=== PATIENT | female | born 2000 | race Caucasian/White ===

== ENCOUNTER 2024-09-12 06:55 | Emergency (ER) | payer BC, SELFPAY ==
[2024-09-12 06:57] VITALS: BP 114/87
[2024-09-12 07:08] VITALS: BMI 27.1
--- NOTE | 2024-09-12 07:11 | ED.GENMED ---
History of Present Illness
General
Chief Complaint: Abdominal Pain
Time Seen by Provider: 09/12/24 07:01
History of Present Illness
History of Present Illness:
The patient is a 24-year-old female who presents with abdominal pain, vomiting, and diarrhea. The pain is described as being located under the ribs and radiating to the back, starting around 5 a.m. today. The patient reports having had a significant
dinner the night before but initially attributed her symptoms to overeating. Over the past night, she also experienced discomfort that differed from previous episodes. The pain did not subside and continued to worsen, especially radiating to her
back, which she had not experienced before. She also noted that taking deep breaths caused pain. She denied any urinary symptoms or new vaginal discharge. Her past medical history includes an appendectomy at the age of [age].
The patient reports intermittent use of semaglutide for weight loss, with her last dose missed, which she typically takes on .
Phy Exam
Physical Exam
Physical Exam:
GENERAL APPEARANCE: NAD, well developed/ well nourished
EYES lids/conjunctiva normal
EARS/NOSE/THROAT Mucous membranes moist, uvula midline without oral pharyngeal erythema, exudate or swelling
HEAD/NECK normocephalic atraumatic, neck is supple.
RESPIRATORY respiratory effort normal, speaks in full sentences, no accessory muscle use. Lungs clear to auscultation without rhonchi, wheezes, rales
CARDIAC Regular rate and rhythm, no edema.
ABDOMINAL Soft, Nondistended. tenderness in the upper right quadrant with some pressure in the epigastrium on palpation
MUSCLES/EXTREMITIES No abnormal range of motion, no swelling.
SKIN Warm, pink and dry. No rashes
NEUROLOGICAL Speech is clear and appropriate. Normal level of consciousness. 5/5 strength in all extremities.
PSYCH Normal mood and affect. Judgement/competence is appropriate
Course
Orders/Labs/Results
Orders:
Orders
09/12/24 07:11
0.9% Sodium Chloride 1000 ml [Nss] 1,000 ml IV BOLUS
HYDROmorphone [Dilaudid] 0.5 mg IV NOW STA
Ondansetron Injectable [Zofran] 4 mg IV NOW STA
09/12/24 07:12
Test Result ONCE
US Abdomen Complete/Upper Urgent
Comment:
Reason For Exam: RUQ pain
09/12/24 07:23
Complete Blood Count/With Diff Urgent
Comprehensive Metabolic Panel Urgent
HCG, Serum Qualitative Screen Urgent
Lipase Urgent
Troponin I Urgent
09/12/24 08:03
HYDROmorphone [Dilaudid] 1 mg IV NOW STA
09/12/24 08:04
HYDROmorphone [Dilaudid] 1 mg .ROUTE .STK-MED ONE
Abnormal Lab Results
09/12/24
07:23
MCV 80.4 L fL
(81.0-99.0)
MCH 26.9 L pg
(27.0-31.0)
MPV 10.6 H fL
(7.4-10.4)
Chloride 108 H mmol/L
(98-107)
09/12/24 07:23
09/12/24 07:23
Vital Signs
Initial and Last Documented VS:
Initial Vital Signs
Temp Pulse Resp BP Pulse Ox
97.5 F 59 18 114/87 100
09/12/24 06:57 09/12/24 06:57 09/12/24 06:57 09/12/24 06:57 09/12/24 06:57
Last Documented Vital Signs
Temp Pulse Resp BP Pulse Ox
97.5 F 48 18 101/51 97
09/12/24 06:57 09/12/24 12:08 09/12/24 06:57 09/12/24 12:08 09/12/24 12:08
MDM/Problems Addressed
Differential Diagnosis Includes:
The Differential Diagnosis includes, in no particular order and is not limited to:
1. Cholelithiasis (Gallstones)
2. Cholecystitis
3. Biliary colic
4. Pancreatitis
5. Peptic ulcer disease
6. Gastroesophageal reflux disease
7. Hepatitis
8. Gastroenteritis
*Critical Care Note
Total Time (30-74mins, 75-104mins- exclusive of procedures): Not Applicable
ED Attending Note
ED Attending Note
ED Attending Note:
- Initiate an intravenous line for fluid administration.
- Administer pain and nausea medication.
- Conduct blood work to investigate potential pancreatitis, and liver function.
- Perform abdominal ultrasound to assess the gallbladder for stones or other pathologies.
- Monitor patient and update with results as they become available.
Reassessment: Pain is resolved. Patient has returned to baseline mental/ambulatory status after pain medications. Instructed close follow up with general surgery to discuss outpatient cholecystectomy. Return precautions given
-
Portions of this chart may have been created with voice recognition software.� Occasional wrong word or��sound alike� substitutions may have occurred due to the inherent limitations of voice recognition software.
Discharge Plan
Departure
Patient Disposition: Home (Routine Discharge)
Date of Disposition: 09/12/24
Time of Disposition: 11:20
Patient with high blood pressure during this ER visit?: No
Discharge Problem:
Biliary colic
Instructions: Gallstones - Discharge instructions
Prescriptions:
New
naproxen 500 mg tablet
500 mg PO BID PRN (Reason: Pain) Qty: 14 0RF
Referrals:
Frannie Garcia DO [Family Provider, Family Practice]
Christopher Serrano MD [Active, Surgical]
Referral Note: biliary colic
Activity Restrictions/Additional Instructions:
Overview
When you eat, the gallbladder releases bile, which helps you digest the fat in food. If you have an inflamed gallbladder, this may cause pain. A low-fat diet may give your gallbladder a rest so you can start to heal. Your doctor and dietitian can
help you make an eating plan that does not irritate your digestive system. Always talk with your doctor or dietitian before you make changes in your diet.
Follow-up care is a arroyo part of your treatment and safety.�Be sure to make and go to all appointments, and call your doctor or nurse advice line (811�in most provinces and territories) if you are having problems. It's also a good idea to know your
test results and keep a list of the medicines you take.
How can you care for yourself at home?
Eat 4 to 6 small meals and snacks each day instead of three large meals.Choose lean meats.
Cut off all fat you can see.
Eat poultry, like chicken, duck, and turkey without the skin.
Many types of fish, such as salmon, xiao trout, tuna, and deras, provide healthy omega-3 fat. But, avoid fish canned in oil, such as sardines in olive oil.
Bake, broil, or grill meats, poultry, or fish instead of frying them in butter or fat.Choose skim or low-fat milk, yogurt, cheese, other milk products, or fortified soy beverage.
Read the labels on cheeses, and choose a reduced fat option.
Try fat-free sour cream, cream cheese, or yogurt.
Avoid cream soups and cream sauces on pasta.
Eat low-fat ice cream, frozen yogurt, or sorbet. Avoid regular ice cream.Eat a variety of vegetables and fruits. These are high in nutrition and low in fat.Limit the amount of avocado and coconut due to their high fat content.Eat whole grain
cereals, breads, crackers, brown rice, or pasta. Avoid breads that have been fried or deep-fried, like bannock or doughnuts, or breads that have a high fat content, like croissants.Flavor your foods with herbs and spices (such as basil, tarragon, or
mint), fat-free sauces, or lemon juice.Try applesauce, prune puree, or mashed bananas to replace some or all of the fat when you bake.Limit fats and oils, such as butter, margarine, mayonnaise, and salad dressing, to no more than 1 tablespoon (15
mL) a meal.Avoid high-fat foods, such as:
Chocolate, whole milk, ice cream, processed cheese, and egg yolks.
Fried, deep fried, or buttered foods.
Sausage, salami, and shea.
Cinnamon rolls, cakes, pies, cookies, and other pastries.
Prepared snack foods, such as potato chips, nut and granola bars, and mixed nuts.
Coconut and avocado.
Fast food and convenience food meals that have lots of fat.
Interventions
Interventions:
*Risk Screen - Suicide Last Done: 09/12/24 06:57
*General Assessment Last Done: 09/12/24 10:00
*Neglect/Abuse Screening Last Done: 09/12/24 06:57
*ED- Fall Risk Assessment Last Done: 09/12/24 07:31
*ED COVID-19 Vaccine History Last Done: 09/12/24 07:31
*Nursing Disposition Last Done: 09/12/24 12:08
KS-Purmei-Xxlqexosjh Assessment Last Done: 09/12/24 07:31
Discharge Date and Time
Discharge Date/Time: 09/12/24 12:08
Print Language: ITALIAN
[2024-09-12] MEDS: DILAUDID 0.5 MG IV (07:19)
[2024-09-12] MEDS: ZOFRAN 4 MG IV (07:20)
[2024-09-12] MEDS: NSS 1000 IV (07:21)
[2024-09-12 07:38] LABS: % Basophils 0.4 % (0-2); % Eosinophils 0.9 % (0-6); % Immature Granulocytes 0.2 % (0-0.5); % Lymphocytes 25.4 % (20.5-51.1); % Monocytes 6.5 % (1.7-9.3); % Neutrophils 66.6 % (42.2-75.2); Absolute Eosinophils 0.1 10^3/uL (0-0.7); Absolute Lymphocytes 2.4 10^3/uL (1.2-3.4); Absolute Monocytes 0.6 10^3/uL (0.1-0.6); Absolute Neutrophils 6.2 10^3/uL (1.4-6.5); Hematocrit 42.2 % (37.0-47.0); Hemoglobin 14.1 g/dL (12.0-16.0); Mean Corp Hgb Conc. 33.4 g/dL (33.0-37.0); Mean Corpuscular Hgb 26.9 pg (27.0-31.0); Mean Corpuscular Volume 80.4 fL (81.0-99.0); Mean Platelet Volume 10.6 fL (7.4-10.4); Nucleated Red Blood Cells % 0 %; Platelet Count 264 10^3/uL (130-400); Red Blood Cell Count 5.25 10^6/uL (4.20-5.40); Red Cell Dist. Width 13.2 % (11.5-14.5); White Blood Cell Count 9.3 10^3/uL (4.8-10.8)
[2024-09-12 07:48] LABS: HCG, Serum Qualitative Screen Negative
[2024-09-12 08:01] LABS: ALT (SGPT) 16 U/L (0-35); AST (SGOT) 18 U/L (14-36); Albumin 4.8 g/dl (3.5-5.0); Alkaline Phosphatase 53 U/L (38-126); Blood Urea Nitrogen 8 mg/dl (7-17); Calcium 9.5 mg/dl (8.4-10.2); Carbon Dioxide 23 mmol/L (22-30); Chloride 108 mmol/L (98-107); Estimated Creatinine Clearance > 125 ml/min; Glucose 93 mg/dl (70-99); Lipase 146 U/L (23-300); Sodium 142 mmol/L (135-145); Total Bilirubin 0.7 mg/dl (0.2-1.3); Total Protein 7.7 g/dl (6.3-8.2); eGFR > 60.00
[2024-09-12 08:03] LABS: Troponin I < 0.012 ng/ml
[2024-09-12] MEDS: DILAUDID 1 MG IV (08:05)
[2024-09-12 10:26] VITALS: BP 106/53
[2024-09-12 10:39] VITALS: BP 106/53
[2024-09-12 12:08] VITALS: BP 101/51
== END 2024-09-12 12:08 | disposition home or self-care (01) ==
LOC: EMR 06:55
PROVIDERS: EMERGENCY PHYSICIAN Emergency Medicine; FAMILY PHYSICIAN Family Medicine
DX: K80.70 Calculus of gallbladder and bile duct without cholecystitis without obstruction (principal); R11.10 Vomiting, unspecified; R19.7 Diarrhea, unspecified
CPT/HCPCS: 96374; 96375; 96376; 96361; 99284; 76700; 80053; 83690; 84484; 84703; 85025

== ENCOUNTER 2024-10-02 22:27 | Day surgery (SDC) | payer BC, SELFPAY ==
[2024-10-02 16:07] VITALS: BP 125/78
[2024-10-02 16:25] LABS: Hematocrit 39.5 % (37.0-47.0); Hemoglobin 12.9 g/dL (12.0-16.0); Mean Corp Hgb Conc. 32.7 g/dL (33.0-37.0); Mean Corpuscular Volume 83.2 fL (81.0-99.0); Nucleated Red Blood Cells % 0 %; Platelet Count 279 10^3/uL (130-400); Red Cell Dist. Width 13.6 % (11.5-14.5)
[2024-10-02 16:34] LABS: HCG, Serum Qualitative Screen Negative
[2024-10-02 16:36] LABS: ALT (SGPT) 33 U/L (0-35); AST (SGOT) 21 U/L (14-36); Albumin 4.7 g/dl (3.5-5.0); Alkaline Phosphatase 52 U/L (38-126); Blood Urea Nitrogen 8 mg/dl (7-17); Calcium 9.7 mg/dl (8.4-10.2); Carbon Dioxide 25 mmol/L (22-30); Chloride 109 mmol/L (98-107); Glucose 94 mg/dl (70-99); Lipase 81 U/L (23-300); Potassium 4.1 mmol/L (3.5-5.1); Sodium 139 mmol/L (135-145); Total Protein 7.4 g/dl (6.3-8.2); eGFR > 60.00
[2024-10-02 18:05] VITALS: BP 118/81
--- NOTE | 2024-10-02 20:03 | ED.GENMED ---
History of Present Illness
General
Chief Complaint: Abdominal Pain
Source: patient
Exam Limitations: none
Time Seen by Provider: 10/02/24 19:51
Nursing documentation reviewed up to this point in time: agreed with
History of Present Illness
History of Present Illness:
24-year-old female presents emergency room complaining of right-sided abdominal pain, nausea vomiting diarrhea. She was seen in the emergency department 3 weeks ago and diagnosed with gallstones. She followed up with Dr. Zach suh, who
recommended cholecystectomy. She continued to have pain, so she came to the emergency department.
Past History
Past History
ED Past Medical History: Other (Gallstone)
ED Past Surgical History: Appendectomy
Social History
Tobacco: Non-smoker
Alcohol: None
Drug: None
Living: with family
Review of Systems
Review of Systems
Allergies reviewed?: Yes
All Other Systems: Not applicable
Constitutional: Reports no symptoms
EENT: Reports no symptoms
Respiratory: Reports no symptoms
Cardiac: Reports no symptoms
ABD/GI: Reports abdominal pain, nausea, vomiting and diarrhea
: Reports no symptoms
Musculoskeletal: Reports no symptoms
Skin: Reports no symptoms
Neurological: Reports no symptoms
Endocrine: Reports no symptoms
Hematologic/Lymphatic: Reports no symptoms
Psychiatric: Reports no symptoms
Phy Exam
Physical Exam
Physical Exam:
Physical Exam
General: no apparent distress, not acutely ill
Neck: supple. no meningeal signs. normal posterior pharynx
Heart: s1/s2 regular rate and rhythm, no murmur. equal radial
pulses.
HEENT: Pupils equal round reactive to light, EOMI
Lungs: no acute respiratory distress. clear bilaterally
Abdomen: normal bowel sounds. Right upper quadrant tenderness. no CVAT
Neuro: alert and oriented. no focal neurological deficits cranial nerves II through XII intact
Skin: no rash
Psychiatric: well kept. interactive and cooperative
Extremities: no edema. no calf tenderness. negative homans. good distal pulses
Course
Orders/Labs/Results
Orders:
Orders
10/02/24 16:09
IV Insert/Care/Rem.- Treatment PRN
10/02/24 16:10
Test Result ONCE
10/02/24 16:14
Complete Blood Count/With Diff Urgent
Comprehensive Metabolic Panel Urgent
HCG, Serum Qualitative Screen Urgent
Comment: Notify provider if positive test present
Lipase Urgent
10/02/24 20:02
US Abdomen Limited Urgent
Comment:
Reason For Exam: RUQ pain, gallstone history eval GB, biliary tree
10/02/24 20:06
Ketorolac [Toradol] 15 mg IV NOW STA
10/02/24 21:22
Piperacillin/Tazo 4.5 Gram [Zosyn] 4.5 gram in 100 ml IV NOW
10/02/24 21:23
Morphine Sulfate 4 mg IV NOW STA
Ondansetron Injectable [Zofran] 4 mg IV NOW STA
10/02/24 22:00
Admit/Transfer Patient As Directed
Co-Sign Provider:
Level of Care: Inpatient admission
Assign to:: Medical/Surgical
Physician / Group: Christopher serrano
Diagnosis: Acute cholecystitis
Reason for Hospitalization: Possible OR
IV antibiotics
Expected length of stay greater than two midnights?: Yes
ELOS- Estimated Length of Stay in days: 1
I certify the patient meets the requirements for IP care: Yes
PRN Pain Medication Management As Directed
May give lesser potent ordered pain med per pt: Yes
preference::
Protocol:: Medication orders for pain may be administered in a
manner that supports deferring to patient preference
when the pt is:
- Requesting an ordered lesser potent pain medication.
Least to most potent pain medications are defined
as: acetaminophen < NSAID < tramadol < opioids
(morphine, oxycodone, hydromorphone).
- Requesting a lesser dose of the same medication IF
ORDERED.
- Requesting a less intrusive route of administration
if both routes are prescribed by the provider (PO <
IV).
10/02/24 22:02
Code Status As Directed
Resuscitation Status: Full Code
10/02/24 23:55
0.9% Sodium Chloride 1000 ml [Nss] 1,000 ml IV 100 mls/hr
Morphine Sulfate 2 mg IV Q4HPRN PRN
Morphine Sulfate 4 mg IV Q4HPRN PRN
Ondansetron Injectable [Zofran] 4 mg IV Q6HPRN PRN
Piperacillin/Tazo 4.5 Gram [Zosyn] 4.5 gram in 100 ml IV Q8H
10/02/24 23:55
Activity As Directed
Activity Level: Out of Bed-Early Mobility
Anti-embolism (AUBREY) Hose As Directed
Type: Thigh high
Intake/ Output As Directed
Frequency: Per unit guidelines
Pneumatic Compression Sleeves As Directed
Type: Thigh high
Vital Signs As Directed
Frequency: Per unit guidelines
DX Deep Vein Thrombosis Video Routine
10/03/24 Breakfast
NPO
Allow oral meds: No
Allow clear liquids: No
Basic Metabolic Panel IN AM
Complete Blood Count/No Diff IN AM
Abnormal Lab Results
10/02/24
16:14
MCHC 32.7 L g/dL
(33.0-37.0)
MPV 10.7 H fL
(7.4-10.4)
Chloride 109 H mmol/L
(98-107)
Total Bilirubin 1.4 H mg/dl
(0.2-1.3)
10/02/24 16:14
10/02/24 16:14
Vital Signs
Initial and Last Documented VS:
Initial Vital Signs
Temp Pulse Resp BP Pulse Ox
98.2 F 64 18 125/78 98
10/02/24 16:07 10/02/24 16:07 10/02/24 16:07 10/02/24 16:07 10/02/24 16:07
Last Documented Vital Signs
Temp Pulse Resp BP Pulse Ox
98 F 51 17 119/57 99
10/02/24 23:50 10/02/24 23:50 10/02/24 23:50 10/02/24 23:50 10/02/24 23:50
MDM/Problems Addressed
Differential Diagnosis Includes:
Cholecystitis, pancreatitis
MDM/Problems Addressed:
24-year-old female with acute cholecystitis. Discussed with Dr. Serrano, who will take the OR in a.. Zosyn given.
Chronic conditions affecting care: Previous abdomnial surgery (Prior appendectomy)
*Radiology
Radiology exam reviewed: radiology read reviewed (Ultrasound gallbladder shows cholelithiasis)
*Pulse Oximetry
SaO2: 99
Oxygen Mode of Delivery: Room air
Patient hypoxic: no
*Engraver Lettering Interpretation
Rate: Engraver Lettering- N/A
*Critical Care Note
Total Time (30-74mins, 75-104mins- exclusive of procedures): Not Applicable
Data Reviewed
Review of Other/Old Records Reveals: Labs (Prior bilirubin 0.7)
Source: records
Further Testing Considered But Not Given:
CT abdomen pelvis not indicated
Patient Management
Social determinants of health affecting care: Living situation
Discussion with other providers: Inspector [employer]ric (General surgery)
Escalation/DeEscalation of care consider admission/obs:
Admit indicated
ED Attending Note
-
Portions of this chart may have been created with voice recognition software.� Occasional wrong word or��sound alike� substitutions may have occurred due to the inherent limitations of voice recognition software.
Discharge Plan
Departure
Patient Disposition: Admit
Date of Disposition: 10/02/24
Time of Disposition: 21:19
Admit to: Med/Surg
Presentation/result/management discussed w/ accepting MD/DO: Dr. Serrano, general surge
Patient with high blood pressure during this ER visit?: No
Condition: Good
Discharge Problem:
Acute cholecystitis
Interventions
Interventions:
*Risk Screen - Suicide Last Done: 10/03/24 00:00
*Neglect/Abuse Screening Last Done: 10/02/24 16:07
*ED COVID-19 Vaccine History Last Done: 10/03/24 00:00
*Nursing Disposition Last Done: 10/02/24 23:51
HY-Wgztqz-Ekizxpgtcc Assessment Last Done: 10/02/24 20:21
Discharge Date and Time
Discharge Date/Time: 10/02/24 23:51
[2024-10-02] MEDS: TORADOL 15 MG IV (20:10)
[2024-10-02 20:19] VITALS: BMI 29.8
[2024-10-02 21:11] VITALS: BP 115/79
[2024-10-02] MEDS: MORPHINE SULFATE 4 MG IV (21:34)
[2024-10-02] MEDS: ZOSYN 100 IV (21:34)
[2024-10-02] MEDS: ZOFRAN 4 MG IV (21:34)
[2024-10-02 22:00] VITALS: BP 111/81
--- NOTE | 2024-10-02 22:14 | HPS.HSE ---
Addendum entered and electronically signed by Sergio Henry MD 10/03/24 12:35:
I saw and examined the patient.
The Corrugator Supervisor's note was reviewed and I agree with the note.
Comment: Remains ttp to RUQ, slight improvement from yesterday. AFVSS. Indirect hyperbilirubinemia, otherwise labs unremarkable. US reviewed, stones noted, no stigmata of ACC. Plan for rCCY with cholangiogram.
Original Note:
Family Physician
-
Family Physician: Frannie Garcia
Chief Complaint
-
'abdomen pain'
History of Present Illness
24 year old patient with hx of PCOS, weight loss with the use of Semaglutide presents to ER with worsening right sided abdomen pain, nausea, vomiting and diarrhea. States she was seen in the ER 3 weeks ago and discharged home with the diagnose of
Gallstones. She followed up with Dr. Serrano who recommended cholecystectomy. Since she continued to have sharp Right upper abdomen pain, prompted her to come to ER. States her pain was located at Right upper quadrant, non radiating. had poor
appetite, nausea and diarrhea at one time. She is on menstruation day 2 and cramping worsened her pain. At present she has no pain as she received Zofran and Morphine. Denies chest pain, shortness of breath at present.
Medical History
Past Medical History
Past Medical History: Reports Other (PCOS, Weight loss )
Past Surgical History: Reports Appendectomy
Social History
Tobacco: Non-smoker
Alcohol: None
Drug: None
Living: With Family
Family History
Family History: Not pertinent
Allergies / Home Medications
Allergies reflects when Allergies were last updated in [facility].
Home Medications with original date entered in [facility]
Allergy/Medication List:
Allergies
Allergy/AdvReac Type Severity Reaction Status Date / Time
No Known Allergies Allergy Unverified 10/02/24 16:07
Home Medications
dextroamphetamine-amphetamine 5 mg tablet 5 mg PO DAILY 10/02/24
methylphenidate HCl 20 mg tablet,extended release 20 mg PO DAILY 10/02/24
Review of Systems
-
Constitutional: Reports No Symptoms
EENT: Reports No Symptoms
Respiratory: Reports No Symptoms
Cardiac: Reports No Symptoms
Abdomen/GI: Reports Abdominal Pain and Nausea
: Reports No Symptoms
Musculoskeletal: Reports No Symptoms
Skin: Reports No Symptoms
Neurological: Reports No Symptoms
Endocrine: Reports No Symptoms
Hematologic/Lymphatic: Reports No Symptoms
Psych: Reports No Symptoms
Physical Exam
Vital Signs
Vital Signs
Temp Pulse Resp BP Pulse Ox
98.2 F 61 15 115/79 97
10/02/24 16:07 10/02/24 21:11 10/02/24 21:11 10/02/24 21:11 10/02/24 21:11
Physical Exam
General: Well Developed, Well Nourished and No Apparent Distress
HEENT: NormoCephalic, Moist mucous membranes and Atraumatic
Respiratory: Clear and Non Labored Respirations
Cardiac: S1/S2 and Regular Rhythm
GI: Soft, Non Distended, Normal Bowel Sounds and Tender (Right upper quadrant )
Rectal: Deferred by Provider
Genito-urinary: No costovertebral tender
Musculoskeletal: No Clubbing, No Cyanosis and No Edema
Skin: Warm and Dry
Neuro: Awake, AO x 3 and Nonfocal/grossly intact
Hematologic/Lymphatic: No Lymphadenopathy
Psych: Calm and Intact Judgment/Insight
Laboratory Results
-
10/02/24 16:14
10/02/24 16:14
Laboratory Results
Total Bilirubin 1.4 mg/dl (0.2-1.3) H 10/02/24 16:14
AST 21 U/L (14-36) 10/02/24 16:14
ALT 33 U/L (0-35) 10/02/24 16:14
Alkaline Phosphatase 52 U/L (38-126) 10/02/24 16:14
Lipase 81 U/L (23-300) 10/02/24 16:14
Data Reviewed
-
Ultrasound: Image Personally Visualized and interpreted
Lab Data: Labs Reviewed by me
Impression/Plan
-
IMPRESSION:
24 year old patient presents to ER with Abdomen pain
# Abdomen pain likely due to gall stones.
Cholelithiasis
-Bilirubin 1.4 (H)
-Lipase 81
-US abdomen CHOLELITHIASIS.
-NPO MN
-Continue IV Zosyn
-NS @100 cc/hr
-Continue Morphine IV Prn
-Continue IV Zofran
-Admit to Dr. Serrano
Full Code
SCD's.
[2024-10-02 23:50] VITALS: BP 119/57
--- NOTE | 2024-10-02 23:55 | PTCARENOTE ---
24 y/o F pt arrived from ED at 23:45. Hx of PCOS, ADHD, vapes nicotine & weight loss with the use of Semaglutide presents to ER with worsening right sided abdomen pain, nausea, vomiting and diarrhea. She followed up with Dr. Serrano for gallstones,
he recommended cholecystectomy. Right upper abdomen pain, prompted her to come to ER. Pt was given Toradol, Morphine 4mg IV & Zofran in ED. Pt's bed in a low position, call light in reach, pain at an acceptable level. Pt NPO at midnight for
probable surgery, care on going.
[2024-10-03] VITALS (9 sets, daily range): BP systolic 100–135; BP diastolic 53–81; BMI 27.2
[2024-10-03] MEDS: ZOSYN 50 IV ×3 (03:30→15:11)
[2024-10-03] MEDS: MORPHINE SULFATE 2 MG IV (06:20)
[2024-10-03 08:07] LABS: ALT (SGPT) 25 U/L (0-35); AST (SGOT) 16 U/L (14-36); Albumin 3.7 g/dl (3.5-5.0); Alkaline Phosphatase 42 U/L (38-126); Blood Urea Nitrogen 8 mg/dl (7-17); Calcium 8.9 mg/dl (8.4-10.2); Carbon Dioxide 25 mmol/L (22-30); Chloride 109 mmol/L (98-107); Estimated Creatinine Clearance 97 ml/min; Glucose 82 mg/dl (70-99); Hematocrit 35.3 % (37.0-47.0); Hemoglobin 11.4 g/dL (12.0-16.0); Mean Corp Hgb Conc. 32.3 g/dL (33.0-37.0); Mean Corpuscular Volume 83.5 fL (81.0-99.0); Platelet Count 215 10^3/uL (130-400); Potassium 3.7 mmol/L (3.5-5.1); Red Cell Dist. Width 13.7 % (11.5-14.5); Sodium 139 mmol/L (135-145); Total Protein 6.0 g/dl (6.3-8.2); eGFR > 60.00
--- NOTE | 2024-10-03 10:02 | CM ---
Reviewed the chart notes and spoke with the patient at the bedside. Patient anticipates going to OR today. Patient resides with her brother and his girlfriend and her significant other in a two story home with no steps to enter. The patient
reports no DME/VN/SNF in the past. The patient confirmed her pharmacy of choice [facility]. CM continues to be available to patient/family and is monitoring medical plan for needs at discharge.
Plan: Discharge to home when medically stable.
--- NOTE | 2024-10-03 10:09 | W.PN.GS2 ---
Today's Communication / Plan
-
Patient was educated by Dr. Henry on her upcoming procedure including but not limited to risks, benefits, and recovery involved.
An elective laparoscopic cholecystectomy is scheduled for early this afternoon.
Dr. Henry explained to patient that due to the high bilirubin level shown in labs warrants an inspection of the bile ducts for stones during his upcoming procedure.
Assessment / Plan
-
Acute Cholecystitis
Keep NPO
Continue IV Zosyn
NS @ 100 CC/hr
Continue IV Zofran
Time Spent
Total Time Spent with Patient (in minutes): 25
Subjective Data
-
Date of Service: October 03, 2024
24 y/o F with a PMHx of PCOS, and nearly 100 lb weight loss with the use of Semaglutide, presented to the ER yesterday due to worsening right sided abdominal pain, along with n/v/d. Patient denies any chest pain or SOB. She states she was diagnosed
with gallstones in the ER 3 weeks ago. She states her pain is located in the RUQ, is nonradiating, and that she had poor appetite around the pain episode. Patient states that her menstruation exacerbated the pain. She is currently on Morphine and
Zofran which is alleviating her pain. Currently, patient denies any n/v/d. She also states that she has not had any bowel movements or flatus. She rates her pain now at a 6/10. Patient states that shes uncomfortable because of lack of sleep for last
2-3 nights.
Objective Data
-
Intake and Output
10/02/24 10/03/24 10/04/24
06:59 06:59 06:59
Intake Total 750 / 750
Balance 750 / 750
Intake:
IV fluids (Total) 700 / 700
IV piggybacks 50 / 50
Other:
Number of approximated MODERATE 2
amounts of urine
Vital Signs
Temp Pulse Resp BP Pulse Ox
98 F 62 17 100/53 99
10/03/24 08:00 10/03/24 08:00 10/03/24 08:00 10/03/24 08:00 10/03/24 08:00
Lab Results
10/03/24 07:23
10/03/24 07:23
Calcium 8.9 mg/dl (8.4-10.2) 10/03/24 07:23
Total Bilirubin 1.9 mg/dl (0.2-1.3) H 10/03/24 07:23
Direct Bilirubin 0.0 mg/dl (0.0-0.4) 10/03/24 07:23
AST 16 U/L (14-36) 10/03/24 07:23
ALT 25 U/L (0-35) 10/03/24 07:23
Alkaline Phosphatase 42 U/L (38-126) 10/03/24 07:23
Total Protein 6.0 g/dl (6.3-8.2) L 10/03/24 07:23
Albumin 3.7 g/dl (3.5-5.0) 10/03/24 07:23
AFVSS
Labs: Total bilirubin is high at 1.9
Last known Lipase is 81.
U/S abdomen/pelvis: Cholelithiasis
Physical Exam
-
General: NAD
AAAOx3
Chest: No labored breathing
Abdomen: Pain, tenderness and distension near the RUQ.
Patient has a govea catheter: No
Patient has a central line: No
[2024-10-03] MEDS: NSS 1000 IV ×2 (10:30)
[2024-10-03] MEDS: OFIRMEV 100 IV (11:34)
[2024-10-03] MEDS: DILAUDID 1 MG IV ×2 (11:39→15:47)
--- NOTE | 2024-10-03 13:43 | OR.RPT ---
Operative Report
Operative Report
Primary Surgeon: Carl
Assisting: Joe KRAUS
Pre-op Diagnosis: Acute calculous cholecystitis
Post-op Diagnosis: Same
Procedure Performed: Robot assisted laparoscopic cholecystectomy with cholangiogram
Anesthesia Type: GETA
Specimen / Cultures: Gallbladder
Estimated Blood Loss: 10cc
Complications: None immediate
Operative Findings: Softly distended gallbladder with pericholecystic edema, cholangiogram with opacification of biliary tree and duodenum without filling defects; a bubble is noted at the first moment of the imaging study
Date of Surgery:� 10/03/24
Indications: This 24F developed acute calculous cholecystitis. 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 Imaging showed no ductal dilation. Laparoscopic cholecystectomy with robotic assist and cholangiogram was planned.
Description of procedure: The patient was placed on the operating table in the supine position. General anesthesia was induced. A time-out was completed verifying correct patient, procedure, site, positioning, and special equipment prior to
beginning this procedure. An orogastric tube was placed. The abdomen was prepped and draped in the usual sterile fashion. A stab incision was made in left upper quadrant and the Veress needle was inserted. Proper position was confirmed by aspiration
and saline meniscus test. The abdomen was insufflated with carbon dioxide to a pressure of 12mmHg. The patient tolerated insufflation well.
A 8mm trocar was then inserted above the umbilicus. The laparoscope was inserted and the abdomen inspected. No injuries from initial trocar placement or Veress needle insertion were noted. Additional 8mm trocars were then inserted in the following
locations: two in the right lower quadrant and to the left of the umbilicus and just above. The abdomen was inspected and no abnormalities were found. The table was placed in the reverse Trendelenburg position with the right side up. The
gallbladder was mildly inflamed with a mildly thickened wall. The dome of the gallbladder was grasped with an atraumatic grasper and retracted over the dome of the liver. The infundibulum was then grasped with an atraumatic grasper and retracted
toward the right lower quadrant. This maneuver exposed Calot�s triangle. The edematous peritoneum overlying the gallbladder infundibulum was then incised and the cystic duct and cystic artery identified and circumferentially dissected so that a
clear view of the liver was achieved through a window between the cystic duct an cystic artery. At this time, the only two structures going into the gallbladder were the cystic artery and cystic duct.
A randall was made in the cystic duct and a catheter threaded through the abdominal wall and into the duct and secured with a 2-0 silk tie. A cholangiogram was obtained that showed good opacification of the biliary tree and duodenum without filling
defects. The catheter was removed.
The cystic duct was then doubly clipped and divided. The cystic artery was controlled with bipolar and divided. The gallbladder was then dissected from its peritoneal attachments by electrocautery. The posterior plane was mildly fibrotic. The
gallbladder was removed using an endoscopic retrieval bag placed through the umbilical port. The gallbladder was passed off the table as a specimen. The gallbladder fossa was irrigated with copious sterile saline. There was no evidence of bleeding
from the gallbladder fossa or cystic artery or leakage of the bile from the cystic duct stump. The umbilical trocar site was closed at the fascial level with 2-0 PDS. Secondary trocars were removed under direct vision and noted to be hemostatic. The
abdomen was allowed to collapse. The skin was closed with subcuticular sutures of 4-0 monocryl and topical skin adhesive. The orogastric tube was removed.
The patient tolerated the procedure well and was taken to the postanesthesia care unit in stable condition.
--- NOTE | 2024-10-03 13:47 | W.DS.TRANS ---
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
-
Discharge Instructions:
Discharge Diagnosis/Procedures Acute calculous cholecystitis
Diet No restrictions
Activity No strenuous activity
Driving Restrictions No driving for 24 hours
Bathing Restrictions OK to Shower
Wound Care Allow skin glue to flake off on its own
Instructions: Cholecystectomy - Discharge instructions
Stand-Alone Forms:
Changes to Home Medications: No
Discharge Medications:
DC Medications w/original date entered in [employer]
dextroamphetamine-amphetamine 5 mg tablet 5 mg PO DAILY 10/02/24
methylphenidate HCl 20 mg tablet,extended release 20 mg PO DAILY 10/02/24
tramadol 50 mg tablet 50 mg PO Q6H PRN Pain #30 tabs 10/03/24
Home Medication Changes
Pending Results: No
--- NOTE | 2024-10-03 14:11 | SUR.PHASEI ---
Rec'd combative and aggitated reassured oriented x 3 reassured
--- NOTE | 2024-10-03 14:23 | SUR.PHASEI ---
remains agitated reassured
[2024-10-03] MEDS: MORPHINE SULFATE 4 MG IV (14:28)
--- NOTE | 2024-10-03 14:37 | SUR.PHASEI ---
Less delirium, noted med darren. well reassured
--- NOTE | 2024-10-03 14:50 | SUR.PHASEI ---
darren Landers ice chips well, floor rn unavial
--- NOTE | 2024-10-03 15:22 | PTCARENOTE ---
Pt returned to 2S in bed. 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 IVF infusing per order. Pt educated on regular diet and to ring for assistance getting OOB, verbalized understanding. Bed locked and in the lowest position, safety maintained.
Oriented to room and call enrique.
[2024-10-03] MEDS: NICODERM TRANSDERMAL 21 MG TRANSDERM (15:46)
[2024-10-03] MEDS: ULTRAM 50 MG PO (16:45)
--- NOTE | 2024-10-03 18:27 | PTCARENOTE ---
Pt pain controlled with po medications, urinated, tolerating regular and able to ambulate steadily with minimal assistance. Pt verbalized feeling ' ok to go home. Discharge reviewed. No questions.
== END 2024-10-03 18:30 | disposition home or self-care (01) ==
LOC: SDS 22:27
PROVIDERS: Nurse Practitioner Gerontology; Student in an Organized Health Care Education/Training Program; ATTENDING PHYSICIAN Surgery; EMERGENCY PHYSICIAN Emergency Medicine; FAMILY PHYSICIAN Family Medicine
DX: K80.10 Calculus of gallbladder with chronic cholecystitis without obstruction (principal)
CPT/HCPCS: 47563; 74300; 76000; 76705; 80048; 80053; 80076; 83690; 84703; 85025; 85027; 88304; 96365; 96375; 99285; 99406; A4300